=== PATIENT | male | born 1980 | race Hispanic/Latino ===

== ENCOUNTER 2019-05-10 10:29 | Emergency (ER) | payer OTHER ==
[~2019-05-10] VITALS: Ht 177.8 cm; Wt 102.3 kg
[2019-05-10 11:06] VITALS: BP 149/99
== END 2019-05-10 11:27 | disposition home or self-care (01) ==
LOC: M ED 10:29 → EDBD 10:29 → M ED 11:27
DX: S76.912A Strain of unspecified muscles, fascia and tendons at thigh level, left thigh, initial encounter (principal); X58.XXXA Exposure to other specified factors, initial encounter; Y92.138 Other place on military base as the place of occurrence of the external cause; Y99.1 Military activity